=== PATIENT | male | born 1990 | race Caucasian/White ===

== ENCOUNTER 2025-05-29 09:27 | Outpatient (REF) | payer MEDICARE, MEDICAID, SELFPAY ==
--- OUTSIDE RECORDS SUMMARY | 2025-05-28 11:15 | XMS_ITS | Encounter Summary ---
Author Organization [facility] Address [address] [place] [address] Care Team Providers Care Film Color Tester Name Role Phone Makayla Early MD Primary Care Provider [phone]- [phone] Reason for Referral * Consultation (Routine) - Authorized Specialty Diagnoses / Procedures Referred By Yoni stephenson Referred To Contact Behavioral Health Diagnoses Anxiety Makayla Early MD [address] [place] [phone] Phone: tel: fax: Referral ID Status Reason Start Date Expiration Date Visits Requested Visits Authorized [id number] Authorized Specialty Services Required 05/28/2025 05/28/2026 1 1 * Consultation (Routine) - Authorized Specialty Diagnoses / Procedures Referred By Yoni stephenson Referred To Contact Sleep Medicine Diagnoses RUDY on CPAP Makayla Early MD [address] [place] [address] Phone: tel: fax: [facility] Referral ID Status Reason Start Date Expiration Date Visits Requested Visits Authorized [id number] Authorized Specialty Services Required 05/28/2025 05/28/2026 1 1 Reason for Visit * Reason Comments CHW - New Patient Assistance Encounter Details Date Type Department Care Team (Late st Contact Info) Description 05/28/2025 11:15 AM EDT Office Visit [facility] [address] [place] [address] [phone] Makayla Early MD [address] [place] [address] [phone] Bilateral deafness (Primary Dx); Obesity (BMI 35.0-39.9 without comorbidity); Anxiety; RUDY on CPAP; Encounter for immunization; Encounter for vaccination; Routine screening for STI (sexually transmitted infection); Learning disability; Dietary counseling; Exercise counseling; Other specified health status Social History Tobacco Use Types Packs/Day Years Used Date Smoking Tobacco: Never Smokeless Tobacco: Never Tobacco Cessation:Counseling Given: Not Answered Alcohol Use Standard Drinks/Week Comments Never 0 (1 standard drink = 0.6 oz pur e alcohol) Depression Answer Date Recorded Patient Health Questionnaire-9 Score 1 05/28/2025 Patient Health Questionnaire-9 Score 1 05/28/2025 Last PHQ-9: Questionnaire Data Not on file 1 Depression Answer Date Recorded Patient Health Questionnaire-2 Score 0 05/28/2025 Sex and Gender Information Value Date Recorded Sex Assigned at Male 05/09/2025 9:13 AM EDT Legal Sex Male 9:00 AM EDT Gender Identity Male 05/09/2025 9:13 AM EDT Sexual Orientation Straight 05/09/2025 9: 13 AM EDT documented as of this encounter Last Filed Vital Signs Vital Sign Reading Time Taken Comments Blood Pressure 120/84 05/28/2025 11:00 AM EDT Pulse 80 05/28/2025 11:00 AM EDT Temperature 37.1 C (98.7 F) 05/28/2025 11:00 AM EDT Respiratory Rate 20 05/28/2025 11:00 AM EDT Oxygen Saturation 96% 05/28/2025 11:00 AM EDT Inhaled Oxygen Concentration - - Weight 109 kg (239 lb 3.2 oz) 05/28/2025 11:00 A M EDT Height 175.3 cm (5' 9 ) 05/28/2025 11:00 AM EDT Body Mass Index 35.32 05/28/2025 11:00 AM EDT documented in this encounter Functional Status * Over the past 2 weeks, how often have you been bothered by any of the following problems? Question Answer Date of Assessment Author Little interest or pleasure in doing things Not at all 05/28/2025 4:35 PM EDT Bora Early MD Feeling down, depressed, or hopeless Not at all 05/28/2025 4:35 PM EDBora Blanco MD Patient Health Questionnaire-2 Score 0 05/28/2025 4:35 PM EDT Gertrude Early MD * Trouble falling or staying asleep, or sleeping too much Answer Date of Assessment Author Not at all 05/28/2025 4:35 PM EDT Makayla Early MD * Feeling tired or having little energy Answer Date of Assessment Author Several days 05/28/2025 4:35 PM EDT Makayla Early MD * Poor appetite or overeating Answer Date of Assessment Author Not at all 05/28/2025 4:35 PM EDT Makayla Early MD * Feeling bad about yourself - or that you are a failure or have let yourself or your family down Answer Date of Assessment Author Not at all 05/28/2025 4:35 PM EDT Makayla Early MD * Trouble concentrating on things, such as reading the newspaper or watching television Answer Date of Assessment Author Not at all 05/28/2025 4:35 PM EDT Makayla Early MD * Moving or speaking so slowly that other people could have noticed? Or the opposite - being so fidgety or restless that you have been moving around a lot more than usual. Answer Date of Assessment Author Not at all 05/28/2025 4:35 PM EDT Makayla Early MD * Thoughts that you would be better off or hurting yourself in some way Answer Date of Assessment Author Not at all 05/28/2025 4:35 PM EDT Makayla Early MD * Patient Health Questionnaire-9 Score Answer Date of Assessment Author 1 05/28/2025 4:35 PM EDT Makayla Early MD * How difficult have these problems made it for you to do your work, take care of things at home, or get along with other people? Answer Date of Assessment Author Somewhat difficult 05/28/2025 4:35 PM EDT Makayla Perez MD documented as of this encounter Patient Instructions * Patient Instructions* Makayla Early MD - 05/28/2025 11:15 AM EDT -[employer] for video phone and door wells and bed alarm [address] [phone] -we will place a referral for [employer] documented in this encounter Progress Notes * Makayla Early MD - 05/28/2025 11:15 AM EDT Subjective Kit is a 34 y.o. male who presents to the office today for a routine physical and to transfer to [facility]. Kit is accompanied by his father Kit Jorge Sr. [place] Sign Language used during the visit. Interim history: Last PCP visit: established care 05/28/25 Current concerns: 1) has seasonal allergies causing nasal congestion 2) would like a DIVER ASSISTANT to assist with visits and home keeping 3) has occasional left ankle pain 4) gets intermittent abscess behind left thigh, not currently active 5) reports he has a hard time getting up in the morning due to fatigue and wakes many times in the night. He has a history of RUDY and report he stopped using his machine after his mother becausehe did not know how to order supplies. Social History: Lives [facility] [place]. His mom passed in 2022 and his father and sister, Josephine, have been caring for him. He reports he went to [employer] and dropped out. His father reports a history of learning disability, diagnosis unknown. (Records requested from 05/28/25). He is largely isolated and reports depression. He has light fire alarms. He does not have video relay, a a light doorbell or a vibrating bed alarm. Tobacco: denied Drugs: none Alcohol: No Sexuality: Denies current sexual activity Suicide/Depression: The patient denies any present symptoms of depression or anxiety. Review of Systems Current Medications[1] Allergies[2] Medical History[3] Surgical History[4] Family History[5] Objective Visit Vitals BP 120/84 (BP Location: Left arm, Patient Position: Sitting, BP Cuff Size: Adult) Pulse 80 Temp 98.7 ??F (37.1 ??C) (Oral) Resp 20 Ht 5' 9 (1.753 m) Wt 239 lb 3.2 oz (109 kg) SpO2 96% BMI 35.32 kg/m?? Smoking Status Never BSA 2.3 m?? Physical Exam Constitutional: Appearance: Normal appearance. HENT: Ears: Comments: Sensioneural haring loss Cardiovascular: Rate and Rhythm: Normal rate and regular rhythm. Heart sounds: Normal heart sounds. Pulmonary: Effort: Pulmonary effort is normal. Breath sounds: Normal breath sounds. Abdominal: General: Abdomen is flat. Palpations: Abdomen is soft. Tenderness: There is no abdominal tenderness. Musculoskeletal: Cervical back: Normal range of motion and neck supple. Comments: Clubbed, deformity of fingers and nails. Lymphadenopathy: Cervical: No cervical adenopathy. Skin: General: Skin is warm and dry. Neurological: Mental Status: Mental status is at baseline. Psychiatric: Behavior: Behavior normal. 34 y.o. male physical exam. Assessment & Plan Bilateral deafness -Patient needs brewing director for all visits. Please make note of this in any referrals. -number given for [employer] for assistive equipment for Deaf such as viedo relay, door bel and bed alarm -referral to [employer] for assistance with DIVER ASSISTANT, possible referral to social group such as are Obesity (BMI 35.0-39.9 without comorbidity) Orders: Hepatic Function Panel; Future Lipid Panel, Standard; Future Basic Metabolic Panel; Future TSH W/Reflex to FT4; Future Anxiety -referral to behavior health 05/28/25 Orders: TSH W/Reflex to FT4; Future Referral to Behavioral Health; Future RUDY on CPAP He has not used his CPAP since 2022 due to his mother's and not knowing how to order supplies. He would like to be treated and is symptomatic. -Referral to sleep medicine placed 05/28/25 Orders: TSH W/Reflex to FT4; Future Referral to Sleep Medicine; Future Encounter for immunization Orders: FLU VACCINE TRIVALENT [id number] (Fluarix) 19 yrs + PCV-20 VACCINE 6 wks + Encounter for vaccination Orders: COVID-19 VACCINE [id number] (Comirnaty) 12 yrs + Routine screening for STI (sexually transmitted infection) Orders: Hepatitis C Antibody with Reflex to HCV, RNA, Quantitative, Real-Time PCR; Future HIV-1/2 Antigen and Antibodies, Fourth Generation, with Reflexes; Future Learning disability Records requested from [facility] 05/28/25 Dietary counseling Dietary Recommendations: Fruits, vegetables, whole grains, protein foods, and fat-free or low-fat dairy products are healthychoices. Eat different types of protein foods in your diet. This can include seafood, lean meats, poultry, beans, peas, lentils, nuts, seeds, soy products, and eggs. Limit foods and beverages higher in added sugars, saturated fat, and sodium. Exercise Recommendations: At least 150 minutes of moderate-intensity physical activity per week, or an equivalent combinationof moderate- and vigorous-intensity activity Exercise counseling Other specified health status -next comprehensive annual evaluation due after 05/28/26 -eye care facilitated by -dental home is -alec care proxy filed 05/28/26 Physical exam -Normal growth and development. -Anticipatory guidance discussed. -Preventative care / harm reduction discussed. Follow up in about 2 months (around 07/28/2025) for f/u labs and viability. [1] No current outpatient medications on file. [2] Allergies Allergen Reactions Budesonide-Formoterol Fumarate Swelling of throat and tounge Cephalexin Rash, hives, nausea/vomiting Clarithromycin Rash, hives, nausea/vomiting Honey Bee Venom Penicillins Rash, hives, nausea/vomiting Sulfa Antibiotics Rash, hives, nausea/vomiting Verapamil Unknown [3] History reviewed. No pertinent past medical history. [4] History reviewed. No pertinent surgical history. [5] No family history on file. documented in this encounter Miscellaneous Notes * Assessment & Plan Note - Makayla Early MD - 05/28/2025 11:15 AM EDT Associated Problem(s): Bilateral deafness -Patient needs brewing director for all visits. Please make note of this in any referrals. -number given for [employer] for assistive equipment for Deaf such as viedo relay, door bel and bed alarm -referral to [employer] for assistance with DIVER ASSISTANT, possible referral to social group such as [facility] * Assessment & Plan Note - Makayla Early MD - 05/28/2025 11:15 AM EDT Associated Problem(s): Obesity (BMI 35.0-39.9 without comorbidity) Orders: Hepatic Function Panel; Future Lipid Panel, Standard; Future Basic Metabolic Panel; Future TSH W/Reflex to FT4; Future * Assessment & Plan Note - Makayla Early MD - 05/28/2025 11:15 AM EDT Associated Problem(s): RUDY on CPAP He has not used his CPAP since 2022 due to his mother's and not knowing how to order supplies. He would like to be treated and is symptomatic. -Referral to sleep medicine placed 05/28/25 Orders: TSH W/Reflex to FT4; Future Referral to Sleep Medicine; Future * Assessment & Plan Note - Makayla Early MD - 05/28/2025 11:15 AM EDT Associated Problem(s): Anxiety -referral to behavior health 05/28/25 Orders: TSH W/Reflex to FT4; Future Referral to Behavioral Health; Future * Assessment & Plan Note - Makayla Early MD - 05/28/2025 11:15 AM EDT Associated Problem(s): Other specified health status -next comprehensive annual evaluation due after 05/28/26 -eye care facilitated by -dental home is -alec care proxy filed 05/28/26 documented in this encounter Plan of Treatment Upcoming Encounters Date Type Department Care Team (Late st Contact Info) Description 07/30/2025 11:00 AM EST Office Visit [facility] [address] [place] [address] Makayla Early MD [address] [place] [address] Scheduled Orders Name Type Priority Associated Diagnoses Orde r Schedule Hepatitis C Antibody with Reflex to HCV, RNA, Quantitative, Real-Time PCR Lab Routine Routine screening for STI (sexually transmitted infection) Expected: 05/28/2025 (Approximate), Expires: 05/28/2026 HIV-1/2 Antigen and Antibodies, Fourth Generation, with Reflexes Lab Routine Routine screening for STI (sexually transmitted infection) Expected: 05/28/2025 (Approximate), Expires: 05/28/2026 Hepatic Function Panel Lab Routine Obesity (BMI 35.0-39.9 without comorbidity) Expected: 05/28/2025 (Approximate), Expires: 05/28/2026 Lipid Panel, Standard Lab Routine Obesity (BMI 35.0-39.9 without comorbidity) Expected: 05/28/2025 (Approximate), Expires: 05/28/2026 Basic Metabolic Panel Lab Routine Obesity (BMI 35.0-39.9 without comorbidity) Expected: 05/28/2025 (Approximate), Expires: 05/28/2026 TSH W/Reflex to FT4 Lab Routine Obesity (BMI 35.0-39.9 without comorbidity) RUDY on CPAP Anxiety Expected: 05/28/2025 (Approximate), Expires: 05/28/2026 Scheduled Referrals Name Type Priority Associated Diagnoses Order Schedule Referral to Sleep Medicine Outpatient Referral Routine RUDY on CPAP Expected: 05/28/2025 (Approximate), Expires: 05/28/2026 Referral to Behavioral Health Outpatient Referral Routine Anxiety Expected: 05/28/2025 (Approximate), Expires: 11/25/2026 documented as of this encounter Visit Diagnoses Diagnosis Bilateral deafness- Primary Unspecified hearing loss Obesity (BMI 35.0-39.9 without comorbidity) Anxiety Anxiety state, unspecified RUDY on CPAP Encounter for immunization Encounter for vaccination Routine screening for STI (sexually transmitted infection) Screening examination for venereal disease Learning disability Other specific developmental learning difficulties Dietary counseling Dietary surveillance and counseling Exercise counseling Other specified health status documented in this encounter Additional Health Concerns Assessment Noted Time PHQ-9 Depression Total Score: 1 05/28/20 25 4:35 PM EDT documented as of this encounter Care Teams Film Color Tester Relationship Specialty Start Date End Date Makayla Early MD [address] [place] [address] PCP - General Family Medicine 05/28/25 documented as of this encounter
--- OUTSIDE RECORDS SUMMARY | 2025-05-29 10:46 | XMS_ITS | Encounter Summary ---
Author Organization [facility] Address [address] [place] [phone] Phone Care Team Providers Care Stoner Out Name Role Phone Herberth Conway PA-C Primary Care Provider [phone] [phone] Irasema Herrera Primary Care Provider Dayanara Agee Primary Care Provider [phone]- [phone] Reason for Referral * MRI/CAT Scan - Closed Specialty Diagnoses / Procedures Referred By Yoni stephenson Referred To Contact Radiology Diagnoses Acute pain of right knee Procedures MRI Knee (Right) Trevor Lopez MD Phone: tel: fax: mailto:[email or web address] Referral ID Status Reason Start Date Expiration Date Visits Re quested Visits Authorized [id number] Closed 09/28/2018 09/28/2019 1 1 Encounter Details Date Type Department Care Team (Late st Contact Info) Description 09/28/2018 Ancillary Orders Virtual Department [address] [place] [address] Trevor Lopez MD [address] [place] [phone] [email or web address] Acute pain of right knee Social History Tobacco Use Types Packs/Day Years Used Date Smoking Tobacco: Never Smokeless Tobacco: Never Alcohol Use Standard Drinks/Week Comments No 0 (1 standard drink = 0.6 oz pur e alcohol) Sex and Gender Information Value Date Recorded Sex Assigned at Not on file Legal Sex Male 9:00 PM EDT Gender Identity Not on file Sexual Orientation Not on file documented as of this encounter Plan of Treatment Not on file documented as of this encounter Results * MRI KNEE WITHOUT CONTRAST (RIGHT) (10/13/2018 11:08 AM EST) Anatomical Region Laterality Modality Knee Right Magnetic Resonan ce 10/13/2018 11:3 8 AM EST Impressions 10/13/2018 11:42 AM EST Lateral patellar deviation with apparent disruption of the medial retinaculum which could be correlated with clinical and radiographic findings. Small to moderate-sized joint effusion with prepatellar soft tissue edema. No discrete meniscal or ligamentous tears are identified. POS - [id number] Narrative 10/13/2018 11:42 AM EST TECHNIQUE: Exam performed on a 1.5 Aishwarya high-field MRI scanner. Axial proton density with fat suppression, coronal proton density with fat suppression, sagittal T1, oblique sagittal proton density and proton density with fat suppression parallel to the plane of the ACL sequences were obtained. FINDINGS: No comparison radiographs are available. No discrete meniscal tear is demonstrated. Cruciate and collateral ligaments appear to be intact. Popliteus, infrapatellar, and visualized portions of the distal quadriceps tendons are intact. There is lateral deviation of the patella with what seems to represent disruption of the medial retinaculum near the patellar insertion point, with surrounding soft tissue edema and minimal subcortical patellar marrow edema present. There is prepatellar soft tissue edema. There is a small to moderate-sized joint effusion most pronounced in the lateral suprapatellar bursa. No soft tissue mass or cyst demonstrated. There is a small focus of subcortical marrow edema in the peripheral aspect of the medial femoral condyle which could represent tiny bone contusion. No other significant marrow changes or focal osteochondral defect are demonstrated. Procedure Note Ricky Leyva MD - 10/13/2018 TECHNIQUE: Exam performed on a 1.5 Aishwarya high-field MRI scanner. Axialproton density with fat suppression, coronal proton density with fatsuppression, sagittal T1, oblique sagittal proton density and protondensity with fat suppression parallel to the plane of the ACL sequenceswere obtained. FINDINGS: No comparison radiographs are available. No discrete meniscal tear isdemonstrated. Cruciate and collateral ligaments appear to be intact.Popliteus, infrapatellar, and visualized portions of the distal quadricepstendons are intact. There is lateral deviation of the patella with what seems to representdisruption of the medial retinaculum near the patellar insertion point,with surrounding soft tissue edema and minimal subcortical patellar marrowedema present. There is prepatellar soft tissue edema. There is a smallto moderate-sized joint effusion most pronounced in the lateralsuprapatellar bursa. No soft tissue mass or cyst demonstrated. There koby small focus of subcortical marrow edema in the peripheral aspect of themedial femoral condyle which could represent tiny bone contusion. Noother significant marrow changes or focal osteochondral defect aredemonstrated. IMPRESSION: Lateral patellar deviation with apparent disruption of the medialretinaculum which could be correlated with clinical and radiographicfindings. Small to moderate- sized joint effusion with prepatellar softtissue edema. No discrete meniscal or ligamentous tears are identified. POS - [id number] us Trevor Lopez MD IMG MR EXTREMITY Final Resul t documented in this encounter Visit Diagnoses Diagnosis Acute pain of right knee Acute pain of right knee documented in this encounter Care Teams Stoner Out Relationship Specialty Start Date End Date Herberth Conway PA-C [address] [place] [address] [address] [place] [address] PCP - General 07/20/17 10/12/18 Irasema Herrera PA [address] [place] [address] [address] [place] [address] PCP - General Unknown Provider Specialty 10/13/18 Dayanara Agee PA [address] [place] [id number] PCP - General Unknown Provider Specialty 08/01/21 documented as of this encounter Additional Source Comments The information contained in this document represents components of the legal health record. It is not the complete legal health record.[facility]
--- OUTSIDE RECORDS SUMMARY | 2025-05-29 10:46 | XMS_ITS | Encounter Summary ---
Author Organization [facility] Address [address] [place] [address] Phone Care Team Providers Care Tower Loader Operator Name Role Phone Dayanara Agee Primary Care Provider [phone]- [phone] Encounter Details Date Type Department Care Team (Latest Contact Info) Description 08/01/2021 Transcribe Orders [facility] [address] [address] Sol Coronado NP [address] [place] [address] Rectal bleeding (Primary Dx); Abdominal pain, left lower quadrant Social History Tobacco Use Types Packs/Day Years [...] documented as of this encounter Results * (ABNORMAL) C-Reactive Protein (08/01/2021 2:05 PM EST) C REACTIVE PROTEIN 4.6(H) 0.0 - 4.0 mg/L [facility] Blood 08/01/2021 2:05 PM EST 08/01/2021 2:08 PM EST Sol Coronado NP LAB BLOOD ORDERABLES Elidia l Result [address] [address] * (ABNORMAL) Comprehensive metabolic panel (08/01/2021 2:05 PM EST) SODIUM 136 133 - 146 mmol/L [facility] POTASSIUM 3.9 3.3 - 5.1 mmol/L [facility] CHLORIDE 101 96 - 108 mmol/L [facility] CO2 26 21 - 35 mmol/L [facility] BUN 12 6 - 19 mg/dL [facility] CREATININE 0.90 0.5 - 1.5 mg/dL [facility] GLUCOSE 99 70 - 99 mg/dL [facility] ALBUMIN 4.6 3.9 - 4.8 g/dL [facility] TOTAL PROTEIN 7.0 6.5 - 8.0 g/dL [facility] CALCIUM 9.5 8.4 - 10.3 mg/dL [facility] ALKALINE PHOSPHATASE 97 39 - 117 U/L [facility] TOTAL BILIRUBIN 1.4(H) 0.0 - 1.2 mg/dL [facility] AST 34 0 - 37 U/L [facility] ALT 61(H) 0 - 40 U/L [facility] GLOBULIN 2.4 1 - 4.8 g/dL [facility] EGFR 118 >59 mL/min/1.7 3m2 [facility] Comment:Estimated glomerular filtration rate calculated using the CKD-EPI refit equation. ANION GAP 13 10 - 20 mmol/L [facility] Blood 08/01/2021 2:05 PM EST 08/01/2021 2:08 PM EST us Sol Coronado NP LAB BLOOD ORDERABLES Elidia l Result [address] [address] * CBC (08/01/2021 2:05 PM EST) WBC 8.35 4.00 - 11.00 K/uL [facility] RBC 5.22 4.23 - 5.82 M/uL [facility] HGB 15.3 13.4 - 17.5 g/dL [facility] HCT 44.8 37.0 - 51.0 % [facility] PLT 273 140 - 430 K/uL [facility] MCV 85.8 78.0 - 97.0 fL [facility] MCH 29.3 25.0 - 33.0 pg [facility] MCHC 34.2 32.0 - 36.0 g/dL [facility] RDW 13.0 11.0 - 15.0 % [facility] MPV 12.1 8.4 - 12.8 [facility] NRBC 0.00 0 /100 WBCs [facility] ABSOLUTE NRBC 0.00 0 K/uL [facility] Blood 08/01/2021 2:05 PM EST 08/01/2021 2:08 PM EST Sol Coronado FEEDER OPERATOR LAB BLOOD ORDERABLES Elidia ayala Result Performing Organization Address City/State/[facility] Co de Phone Number [address] [address] documented in this encounter Visit Diagnoses Diagnosis Rectal bleeding- Primary Hemorrhage of rectum and anus Abdominal pain, left lower quadrant documented in this encounter Care Teams Tower Loader Operator Relationship Specialty Start Date End Date Dayanara Agee PA [address] [place] [id number] PCP - General Unknown Provider Specialty 08/01/21 documented as of this encounter Additional Source Comments The information contained in this document represents components of the legal health record. It is not the complete legal health record.[facility]
--- OUTSIDE RECORDS SUMMARY | 2025-05-29 10:46 | XMS_ITS | Encounter Summary ---
Author Organization [facility] Address [address] [place] [address] Phone Care Team Providers Care Eligibility Analyst Name Role Phone Dayanara Agee Primary Care Provider [phone]- [phone] Encounter Details Date Type Department Care Team (Late st Contact Info) Description 01/13/2023 Transcribe Orders Virtual Department [address] [place] [address] Fabby Lantigua MD [address] [place] [address] [email or web address] Left lower quadrant pain (Primary Dx) Social History Tobacco Use Types Packs/Day Years Used Date Smoking Tobacco: Never Smokeless Tobacco: Never Alcohol Use Standard Drinks/Week Comments No 0 (1 standard drink = 0.6 oz pur e alcohol) Education Answer Date Recorded Are you interested in more education? Not on dee e 12/18/2022 Are you concerned about learning? Not on file 12/18/2022 No 12/18/2022 No 12/18/2022 Digital Access Answer Date Recorded No 01/13/2023 No 01/13/2023 Reliable internet access at home? Not on file 01/13/2023 Device with a working camera? Not on file Sex and Gender Information Value Date Recorded Sex Assigned at Not on file Legal Sex Male 9:00 PM EDT Gender Identity Not on file Sexual Orientation Not on file documented as of this encounter Plan of Treatment Not on file documented as of this encounter Visit Diagnoses Diagnosis Left lower quadrant pain- Primary Abdominal pain, left lower quadrant documented in this encounter Care Teams Eligibility Analyst Relationship Specialty Start Date End Date Dayanara Agee PA [address] [place] [phone] PCP - General Unknown Provider Specialty 08/01/21 documented as of this encounter Additional Source Comments The information contained in this document represents components of the legal health record. It is not the complete legal health record.[facility]
--- OUTSIDE RECORDS SUMMARY | 2025-05-29 10:46 | XMS_ITS | Clinical Summary ---
Author Organization [facility] Address [address] [place] [address] Phone Care Team Providers Care Criminal Investigative Agent Name Role Phone Dayanara Agee Primary Care Provider Allergies Active Allergy Reactions Criticality Noted Date Comments Allergen Flc-Yuzox-Rmieo Bee 022 Clarithromycin 10/04/2017 Rash, hives, nausea/vomiting Cephalexin 10/04/2017 Rash, hives, nausea/vomiting Penicillins 10/04/2017 Rash, hives, nausea/vomiting Sulfa (Sulfonamide Antibiotics) 10/04/2017 Rash, hives, nausea/vomiting Budesonide-Formoterol 10/04/2017 Swelling of throat and tounge Verapamil Unknown 10/04/2017 Medications fluticasone-олег meterol (ADVAIR DISKUS) 500-50 mcg/dose DISKUS 1 puff Acti ve EPINEPHrine (EPIPEN JR) 0.15 mg/0.3 mL injection Active loratadine (CLARITIN) 10 mg tablet 1 tablet Active RIZATRIPTAN BENZOATE (MAXALT ORAL) 1 tablet as needed one time Active albuterol (PROAIR HFA) 90 mcg/actuation inhaler 2 puffs as needed Active montelukast (SINGULAIR) 10 mg tablet 1 tablet in the evening Active azelastine (ASTELIN) 137 mcg (0.1 %) nasal spray SPRAY 1 SPRAY INTO EACH NOSTRIL TWICE A DAY 30 mL 11 12/19/2018 Active omeprazole (PRILOSEC) 40 MG capsule Take by mouth daily. 10/18/2021 Active fluticasone furoate-vilante roL (BREO ELLIPTA) 200-25 mcg/dose inhaler Inhale 1 puff into the lungs daily. Active fluticasone propionate (FLONASE) 50 mcg/actuation nasal sprayIndication s:Chronic rhinitis SPRAY 2 SPRAYS INTO EACH NOSTRIL EVERY DAY 48 mL 3 12/08/2021 Active Active Problems Problem Noted Date Diagnosed Date Moderate persistent asthma 10/04/2017 Assessment & Plan (10/04/2017 11:07 AM EST): Clinically well controlled. Continue high-dose Advair ensuring he holds his breath for 10 seconds after inhalation. RUDY on CPAP 10/04/2017 Assessment & Plan (10/04/2017 11:30 AM EST): Poor CPAP tolerance. Continue follow-up with sleep medicine services. Laryngoscopy suggestive of element of vocal cord dysfunction. Chronic rhinitis 10/04/2017 Overview (10/04/2017): Positive to dust mites on allergy testing. Assessment & Plan (10/04/2017 11:30 AM EST): Continue nasal steroids. Increase Flonase to 2 sprays each side once daily in the evening. Trial of adding Astelin nasal spray, 1 spray each side twice daily. Vocal cord dysfunction 10/04/2017 Overview (10/04/2017): On laryngoscopy 10/04/17 Assessment & Plan (10/04/2017 11:31 AM EST): Increase laryngeal tension seen on laryngoscopy today. Patient unable to phonate making further evaluation difficult. Increase omeprazole to 40 mg daily on an empty stomach. Increase treatment for allergic rhinitis to allow better nasal breathing. If still ineffective, could consider breathing training with speech therapy although the patient is mute and deaf making teaching somewhat more challenging. Encounters Date Type Department Care Team Description 04/18/2025 Transcribe Orders [facility] [address], [address] [place] [address] Cathy Duarte PA RUDY (obstructive sleep apnea) (Primary Dx) 04/13/2025 Transcribe Orders [address], [address] [place] [address] Cathy Duarte PA from Last 3 Months Immunizations Immunization Administration Dates Next Due DTP 02/18/1993, 2,1991,09/13 DTaP 09/26/1996 Hepatitis B 09/06/1996,11/15/1995,10/18/1995 Hib,HbOC 10/14/1992, 2,1991,09/13 INFLUENZA, SPLIT VIRUS, TRIVALENT PF 07/14/2011 INFLUENZA, SPLIT VIRUS, TRIV ALENT W/ PRESERVATIVE IM 05/26/2012,06/03/2010,06/26/2007,07/20 Influenza Quadrivalent Prese rvative Free IM 08/15/2019,06/01/2018,07/06/2017,06/04,05/09/2015,07/11/2014 Influenza Split (Incl. Purif ied Surface Antigen) 07/31/2009,06/28/2008 Influenza trivalent preserva tive free intradermal 06/14/2013 MMR 09/26/1996,07/09/1992 Novel [id number], Injectable 07/31/2009 Pneumococcal polysaccharide PPSV23 11/29/2012 Polio - OPV 09/26/1996, 3,1991,09/13 Td (adult),2 Lf Tetanus Toxo id, PF, Adsorbed 02/16/2003 Tdap 12/01/2018,11/05/2008 Social History Tobacco Use Types Packs/Day Years [...] on file Sexual Orientation Not on file Last Filed Vital Signs Vital Sign Reading Time Taken Comments Blood Pressure 111/68 11/13/2021 10:26 AM EDT Pulse 80 11/13/2021 10:26 AM EDT Temperature 36.1 C (97 F) 11/13/2021 10:12 AM EDT Respiratory Rate 16 11/13/2021 10:26 AM EDT Oxygen Saturation 98% 11/13/2021 10:26 AM EDT Inhaled Oxygen Concentration - - Weight 128.8 kg (284 lb) 01/08/2022 5:17 PM EDT Height 175.3 cm (5' 9 ) 01/08/2022 5:17 PM EDT Body Mass Index 41.94 01/08/2022 5:17 PM EDT Plan of Treatment Health Maintenance Due Date Last Done Comments DEPRESSION SCREENING 2003 HIV ONE-TIME SCREENING (18-65 YEARS) 2009 PNEUMOCOCCAL VACCINES (0-49 years) (2 of 2 - PCV) 11/29/2013 11/29/2012 INFLUENZA VACCINE (#1) 2025 , 06/13/2020, 08/15/2019, Additional history exists COVID-19 VACCINE (3 - 2024- season) 2025 03/05/2021, 02/12/2021 Adult Td,Tdap Booster 12/01/2028 12/01/2018 , 11/05/2008, 02/16/2003 HIB VACCINES Completed 10/14/1992, 01/21, 1991, Additional history exists SMOKING STATUS SCREENING (Once After 26 Yrs) Completed 11/13/2021 HEPATITIS C SCREENING Completed 11/25/2021, 022 HEPATITIS A VACCINES Aged Out No long er eligible based on patient's age to complete this topic MENINGOCOCCAL VACCINES (ACWY) Aged Out No longer eligible based on patient's age to complete this topic MENINGOCOCCAL VACCINES (B) Aged Out N o longer eligible based on patient's age to complete this topic Medical Devices Not on file Procedures Procedure Name Priority Date/Time Associated Diagnosis Comments LIVER FIBROSIS TEST Routine 11/25/2021 1 2:23 PM EDT Abdominal pain, generalized Nonspecific abnormal results of liver function study from Last 3 Months or Most Recently Relevant to Health Maintenance Results * (ABNORMAL) Liver fibrosis test (11/25/2021 12:23 PM EDT) Fibrosis score 0.14 [facility] Interpretation (Fibrosis) SEE NOTE [facility] Comment: (NOTE) no fibrosis Fibro Test Score (f) Metavir Score f>=0 and f<=0.21 : F0 (no fibrosis) f>0.21 and f<=0.27 : F0-F1 (no fibrosis) f>0.27 and f<=0.31 : F1 (minimal fibrosis) f>0.31 and f<=0.48 : F1-F2 (minimal fibrosis) f>0.48 and f<=0.58 : F2 (moderate fibrosis) f>0.58 and f<=0.72 : F3 (advanced fibrosis) f>0.72 and f<=0.74 : F3-F4 (advanced fibrosis) f>0.74 and f<=1.00 : F4 (severe fibrosis) HCV Fibrosis Grade F0 Q [facility] NECROINFLAMM SCORE 0.28 Q [facility] NECROINFLAMM GRADE SEE NOTE Q [facility] Comment: (NOTE) Result: A0-A1 NECROINFLAMM INTERP SEE NOTE [facility] Comment: (NOTE) no activity ActiTest Score (a) Metavir Score a>=0 and a<=0.17 : A0 (no activity) a>0.17 and a<=0.29 : A0-A1 (no activity) a>0.29 and a<=0.36 : A1 (minimal activity) a>0.36 and a<=0.52 : A1-A2 (minimal activity) a>0.52 and a<=0.60 : A2 (significant activity) a>0.60 and a<=0.62 : A2-A3 (significant activity) a>0.62 and a<=1.00 : A3 (severe activity) A2 Macroglobulin 120 106 - 279 mg/dL [facility] Haptoglobin 131 43 - 212 mg/dL [facility] Apolipoprotein A1 151 94 - 176 mg/dL [facility] TOTAL BILIRUBIN 1.4(H) 0.2 - 1.2 mg/dL [facility] GGT 59 3 - 90 U/L [facility] ALT 56(H) 9 - 46 U/L [facility] Specimen/Product ID [id number] [facility] Comments (Chemistry) SEE NOTE [facility]/ [facility] Comment: (NOTE) The reliability of results is dependent on compliance with the preanalytical and analytical conditions recommended by [employer]. The tests have to be deferred for: acute hemolysis, acute hepatitis, acute inflammation, extra hepatic cholestasis. The advice of a specialist should be sought for interpretation in chronic hemolysis and Gilbert's syndrome. The test interpretation is not validated in liver transplant patients. Isolated extreme values of one of the components should lead to caution in interpreting the results. In case of discordance between a biopsy result and a test, it is recommended to seek the advice of a specialist. The causes of these discordances could be due to a flaw of the test or to a flaw in the biopsy: i.e. a liver biopsy has a 33% variability rate for one fibrosis stage. FibroTest is interpretable for chronic hepatitis B and C, alcoholic and non alcoholic steatosis. ActiTest is interpretable for chronic hepatitis B and C. The performance characteristics have been determined by [facility]. It has not been cleared or approved by the U.S. Food and Drug Administration. Performance characteristics refer to the analytical performance of the test. [employer], the associated logo, [employer] and all associated [employer] graff are the registered trademarks of [employer]. All third alliance party graff - (R) and (TM) - are the property of their respective owners. (C) [id number] [employer]. All rights reserved. Blood 11/25/2021 12:2 3 PM EDT 11/25/2021 12:26 PM EDT us Sol [place] NP LAB BLOOD ORDERABLES Elidia ayala Result [facility] [address] [place] [address], [facility] from Last 3 Months or Most Recently Relevant to Health Maintenance Insurance [place] [address] [place], [place] [address]HEALTH MEDICARE PART A & B [place] B Member Subscriber Plan / Payer (Ef fective 2011-Present) Name:Kit Jorge Member ID:[id number] Relation to Subscriber:Self Name:Kit Jorge Subscriber ID:[id number] Payer ID:[id number] Group ID:Not on file Type:Medicare Address: [facility] [employer] [facility] [address] [place] [address] [place] B Member Subscriber Plan / Payer (Ef fective 2011-Present) Name:Kit Jorge Member ID:[id number] Relation to Subscriber:Self Name:Kit Jorge Subscriber ID:[id number] Payer ID:[id number] Group ID:Not on file Type:Medicare Address: [facility] [employer] [facility] [address] [place] [address] [place] PART A & B [facility] MED[facility] PART A & B Care Teams Criminal Investigative Agent Relationship Specialty Start Date End Date Dayanara Agee PA [address] [place] [address] PCP - General Unknown Provider Specialty 08/01/21 Additional Source Comments The information contained in this document represents components of the legal health record. It is not the complete legal health record.[facility]
--- OUTSIDE RECORDS SUMMARY | 2025-05-29 10:46 | XMS_ITS | Encounter Summary ---
Author Organization [facility] Address [address] [place] [phone] Phone Care Team Providers Care Psychologist Name Role Phone Dayanara Agee Primary Care Provider [phone]- [phone] Encounter Details Date Type Department Care Team (Latest Contact Info) Description 11/25/2021 Transcribe Orders Virtual Department [address] [place] [address] Sol [place] NP [address] [place] [address] Abdominal pain, unspecified abdominal location (Primary Dx) Social History Tobacco Use Types [...] as of this encounter Visit Diagnoses Diagnosis Abdominal pain, unspecified abdominal location- Primary documented in this encounter Care Teams Psychologist Relationship Specialty Start Date End Date Dayanara Agee PA [address] [place] [phone] PCP - General Unknown Provider Specialty 08/01/21 documented as of this encounter Additional Source Comments The information contained in this document represents components of the legal health record. It is not the complete legal health record.[facility]
--- OUTSIDE RECORDS SUMMARY | 2025-05-29 10:46 | XMS_ITS | Encounter Summary ---
Author Organization [facility] Address [address] [place] [address] Phone Care Team Providers Care Geospatial Image Analyst Name Role Phone Dayanara Agee Primary Care Provider [phone]- [phone] Reason for Referral * MRI/CAT Scan - Closed Specialty Diagnoses / Procedures Referred By Yoni stephenson Referred To Contact Radiology Diagnoses Mild cognitive impairment, so stated Procedures MRI Brain Eddie Robertson MD, PhD Phone: tel: fax: [email or web address] Referral ID Status Reason Start Date Expiration Date Visits Re quested Visits Authorized [id number] Closed 12/03/2021 12/03/2022 1 1 Encounter Details Date Type Department Care Team (Latest Contact Info) Description 12/03/2021 Transcribe Orders Virtual Department [address] [place] [phone] Eddie Robertson MD, PhD [address] [place] [phone] [email or web address]. [employer] Mild cognitive impairment, so stated (Primary Dx) Social History Tobacco Use Types [...] as of this encounter Results * MRI BRAIN WITHOUT CONTRAST (01/13/2022 11:25 AM EDT) Anatomical Region Laterality Modality Head Magnetic Resonan ce 01/13/2022 12:2 0 PM EDT Impressions 01/13/2022 12:24 PM EDT No acute intracranial abnormality. Narrative 01/13/2022 12:24 PM EDT MRI BRAIN WITHOUT CONTRAST TECHNIQUE: Multi-sequence, multi-planar MRI of the brain was performed without intravenous contrast. COMPARISON: None FINDINGS: Brain Parenchyma: Normal. No evidence of acute infarct, mass lesion, or hemorrhage. Corpus callosum and midline structures are unremarkable. No evidence of Chiari malformation Ventricular System and Extra-Axial Spaces: Normal. No evidence of midline shift or hydrocephalus. Extracranial Structures: Arterial flow voids in the skull base are present. The paranasal sinuses and mastoid air cells are clear. The orbits are unremarkable. Procedure Note Heriberto Dooley MD - 01/13/2022 MRI BRAIN WITHOUT CONTRAST TECHNIQUE: Multi-sequence, multi-planar MRI of the brain was performed withoutintravenous contrast. COMPARISON: None FINDINGS: Brain Parenchyma: Normal. No evidence of acute infarct, mass lesion, orhemorrhage. Corpus callosum and midline structures are unremarkable. Noevidence of Chiari malformation Ventricular System and Extra-Axial Spaces: Normal. No evidence of midlineshift or hydrocephalus. Extracranial Structures: Arterial flow voids in the skull base arepresent. The paranasal sinuses and mastoid air cells are clear. The orbits areunremarkable. IMPRESSION: No acute intracranial abnormality. Eddie Robertson MD, PhD IMG MR HEAD/NECK Final Result documented in this encounter Visit Diagnoses Diagnosis Mild cognitive impairment, so stated- Primary Mild cognitive impairment, so stated documented in this encounter Care Teams Geospatial Image Analyst Relationship Specialty Start Date End Date Dayanara Agee PA [address] [address] PCP - General Unknown Provider Specialty 08/01/21 documented as of this encounter Additional Source Comments The information contained in this document represents components of the legal health record. It is not the complete legal health record.[facility]
--- OUTSIDE RECORDS SUMMARY | 2025-05-29 10:46 | XMS_ITS | Encounter Summary ---
Author Organization [facility] Address [address] [address] Phone Care Team Providers Care Building Supervisor Name Role Phone Dayanara Agee Primary Care Provider [phone] Encounter Details Date Type Department Care Team (Late st Contact Info) Description 10/16/2021 Procedure Pass [facility] Endoscopy Admitting Dept Virtual Department [address] [place] [phone] Social History Tobacco Use Types Packs/Day Years [...] documented as of this encounter Visit Diagnoses Not on filedocumented in this encounter Care Teams Building Supervisor Relationship Specialty Start Date End Date Dayanara Agee PA [address] [place] [address] PCP - General Unknown Provider Specialty 08/01/21 documented as of this encounter Additional Source Comments The information contained in this document represents components of the legal health record. It is not the complete legal health record.[facility]
--- OUTSIDE RECORDS SUMMARY | 2025-05-29 10:46 | XMS_ITS | Encounter Summary ---
Author Organization [facility] Address [address] [place] [address] Phone Care Team Providers Care Database Marketing Manager Name Role Phone Dayanara Agee Primary Care Provider +1- [phone] Encounter Details Date Type Department Care Team (Latest Contact Info) Description 09/30/2021 Transcribe Orders [address] [place], [place] [address] Sol Coronado, REA [address] [place] [address] Abdominal pain, left lower quadrant (Primary Dx); Need for hepatitis C screening test Social History Tobacco Use Types Packs/Day Years [...] documented as of this encounter Results * Hepatitis C antibody, qualitative (09/30/2021 1:43 PM EST) HCV NON-REACTIV E NON-REACTI VE [facility] Blood 09/30/2021 1:43 PM EST 09/30/2021 1:49 PM EST Sol Coronado NP LAB BLOOD ORDERABLES Elidia l Result [address] [address] * Hepatitis B core antibody, total (09/30/2021 1:43 PM EST) HEP B CORE AB, TOT NON-REACTI VE NON-REACTI VE [facility] Blood 09/30/2021 1:43 PM EST 09/30/2021 1:49 PM EST Sol Coronado ARTISTS' MODEL LAB BLOOD ORDERABLES Elidia l Result [address] [address] * HEPATITIS A ANTIBODY, TOTAL (09/30/2021 1:43 PM EST) HAV TOTAL AB NON-REACTI VE NON-REACTI VE [facility] Blood 09/30/2021 1:43 PM EST 09/30/2021 1:49 PM EST Sol Coronado NP LAB BLOOD ORDERABLES Elidia l Result Performing Organization Address City/[facility]/ZIP Co de Phone Number [address] [address] * (ABNORMAL) Ceruloplasmin (09/30/2021 1:43 PM EST) CERULOPLASMIN 19(L) 20 - 60 mg/dL [facility] Blood 09/30/2021 1:43 PM EST 09/30/2021 1:49 PM EST Sol Coronado ARTISTS' MODEL LAB BLOOD ORDERABLES Elidia l Result [address] [address] * (ABNORMAL) CPK (creatine kinase) (09/30/2021 1:43 PM EST) CREATINE KINASE 270(H) 35 - 232 U/L [facility] Blood 09/30/2021 1:43 PM EST 09/30/2021 1:49 PM EST Sol Coronado ARTISTS' [employer]DEL LAB BLOOD ORDERABLES Elidia l Result Performing Organization Address [facility]/ZIP Co de Phone Number [address] [address] * Immunoglobulin A (09/30/2021 1:43 PM EST) IgA 197 70 - 400 mg/dL [facility] Blood 09/30/2021 1:43 PM EST 09/30/2021 1:49 PM EST Result [facility] Sol Coronado NP LAB BLOOD ORDERABLES Elidia l Result Performing Organization Address [facility] Phone Number [address] [address] * Tissue transglutaminase IgA (09/30/2021 1:43 PM EST) TTG IGA ANTIBODY 2.7 <4.0 (Negative) U/mL [facility] Blood 09/30/2021 1:43 PM EST 09/30/2021 1:49 PM EST Result [facility] Sol Coronado NP LAB BLOOD ORDERABLES Elidia l Result Performing Organization Address [facility] de Phone Number [facility] [address] [place] [address] * Smooth Muscle Antibody (09/30/2021 1:43 PM EST) SMOOTH MUSCLE AB POSITIVE AT 1:80 [facility] Comment: Raymond Alves M.D., Director Clinical Immunology Laboratory [id number] Normal: Negative at 1:20 Blood 09/30/2021 1:43 PM EST 09/30/2021 1:49 PM EST Sol Coronado [employer]DEL LAB BLOOD ORDERABLES Elidia l Result Performing Organization Address City/[facility]/ZIP Co de Phone Number [address] [address] * Anti-Mitochondrial Antibody (AMA) (09/30/2021 1:43 PM EST) MITOCHONDRIAL AB NEGATIVE AT 1:20 [facility] Comment: Raymond Alves M.D., Director Clinical Immunology Laboratory [id number] Normal: Negative at 1:20 Blood 09/30/2021 1:43 PM EST 09/30/2021 1:49 PM EST Sol Coronado NP LAB BLOOD ORDERABLES Elidia l Result Performing Organization Address City/[facility]/ZIP Co de Phone Number [address] [address] * Antinuclear antibody (DEMETRIUS) (09/30/2021 1:43 PM EST) Pathologist [facility] DEMETRIUS SCREEN ON HEP 2 Negative Negative [facility] Blood 09/30/2021 1:43 PM EST 09/30/2021 1:49 PM EST Sol Coronado ARTISTS' MODEL LAB BLOOD ORDERABLES Elidia l Result Performing Organization Address City/[facility]/ZIP Co de Phone Number [address] [address] * Fgqbx-4-csdnhimapxa phenotyping (09/30/2021 1:43 PM EST) Pathologist [facility] ALPHA 1 ANTITRYPSIN 136 100 - 190 mg/dL [facility] Comment: (NOTE) ADDITIONAL INFORMATION Method: Nephelometry A1A PHENOTYPE MM bands [facility] Comment: (NOTE) A single M isoform is detected. In the context of a normal hufku-4-ckvuinwjlxa concentration, this is consistent with an MM phenotype. ADDITIONAL INFORMATION Method: Isoelectric Focusing, This assay identifies the phenotype of the circulating bfqtc-8-sbktxoislla (A1A) protein. If the patient is on replacement therapy or has been recently transfused, the phenotype will detect patient and replacement or transfused plasma A1A protein. This test also cannot detect a null allele which could be responsible for an A1A deficiency. Blood 09/30/2021 1:43 PM EST 09/30/2021 1:49 PM EST Result [facility] Sol Coronado NP LAB BLOOD ORDERABLES Elidia l Result Performing Organization Address City/[facility] Co de Phone Number [facility] [address] [place] [address] * Iron and iron binding capacity (09/30/2021 1:43 PM EST) IRON 80 45 - 160 ug/dL [facility] IRON BINDING CAPACITY 256 228 - 428 ug/dL [facility] TRANSFERRIN SATURAT. 31 20 - 55 % [facility] Blood 09/30/2021 1:43 PM EST 09/30/2021 1:49 PM EST Result [facility] Sol Coronado NP LAB BLOOD ORDERABLES Elidia l Result Performing Organization Address [facility] Co de Phone Number [address] [address] * Hepatitis B surface antibody (09/30/2021 1:43 PM EST) HBV SURFACE ANTIBODY Positive [facility] Comment: Unvaccinated: Negative Vaccinated: Positive Blood 09/30/2021 1:43 PM EST 09/30/2021 1:49 PM EST Result [facility] Sol Coronado NP LAB BLOOD ORDERABLES Elidia l Result Performing Organization Address [facility] Co de Phone Number [address] [address] * Hepatitis B surface antigen (09/30/2021 1:43 PM EST) HBV SURFACE ANTIGEN NON-REACTI VE NON-REACTI VE [facility] Blood 09/30/2021 1:43 PM EST 09/30/2021 1:49 PM EST Sol Coronado ARTISTS' MODEL LAB BLOOD ORDERABLES Elidia l Result [address] [address] * (ABNORMAL) Ferritin (09/30/2021 1:43 PM EST) Pathologist [facility] FERRITIN 461(H) 30 - 400 ug/L [facility] Blood 09/30/2021 1:43 PM EST 09/30/2021 1:49 PM EST Sol Coronado ARTISTS' MODEL LAB BLOOD ORDERABLES Elidia l Result Performing Organization Address City/[facility]/ZIP Co de Phone Number [address] [address] * Lipid panel (09/30/2021 1:43 PM EST) HDL 56 mg/dL [facility] Comment: Interpretation <40 mg/dL: Low HDL cholesterol (major risk factor for CHD) Greater than or equal to 60 mg/dL: High HDL cholesterol ( negative risk factor for CHD) HDL - cholesterol is affected by a number of factors, e.g. smoking, excerise, hormones, sex and age. CHOLESTEROL 199 0 - 240 mg/dL [facility] TRIGLYCERIDES 135 30 - 160 mg/dL [facility] LDL 116 50 - 129 mg/dL [facility] Comment: LDL levels in terms of risk for coronary heart disease: <100 mg/dL: Optimal 100-129 mg/dL: Near or above optimal 130-159 mg/dL: Borderline high 160-189 mg/dL: High >190 mg/dL: Very High CARDIAC RISK RATIO 3.6 3.4 - 5.0 C [facility] Blood 09/30/2021 1:43 PM EST 09/30/2021 1:49 PM EST us Sol Coronado ARTISTS' [employer]DEL LAB BLOOD ORDERABLES Elidia l Result [address] [address] documented in this encounter Visit Diagnoses Diagnosis Abdominal pain, left lower quadrant- Primary Need for hepatitis C screening test Special screening examination for other specified viral diseases documented in this encounter Care Teams Database Marketing Manager Relationship Specialty Start Date End Date Dayanara Agee PA [address] [place] [address] PCP - General Unknown Provider Specialty 08/01/21 documented as of this encounter Additional Source Comments The information contained in this document represents components of the legal health record. It is not the complete legal health record.[facility]
--- OUTSIDE RECORDS SUMMARY | 2025-05-29 10:46 | XMS_ITS | Encounter Summary ---
Author Organization [employer] Address [address] [facility] [place] [address] Care Team Providers Care Poacher Wringer Operator Name Role Phone Makayla Early MD Primary Care Provider +1- [phone] Encounter Details Date Type Department Care Team (Latest Contact Info) Description 05/28/2025 Travel Social History Tobacco Use Types Packs/Day Years Used Date Smoking Tobacco: Never Smokeless Tobacco: Never Alcohol Use Standard Drinks/Week Comments Never 0 [...] AM EDT documented as of this encounter Functional Status * Over the past 2 weeks, how often have you been bothered by any of the following problems? Question Answer Date of Assessment Author Little interest or pleasure in doing things Not at all 05/28/2025 4:35 PM EDT Bora Early MD Feeling down, depressed, or hopeless Not at all 05/28/2025 4:35 PM EDT Bora Early MD Patient Health Questionnaire-2 Score 0 05/28/2025 [...] Perez MD documented as of this encounter Plan of Treatment Upcoming Encounters Date Type Department Care Team (Late st Contact Info) Description 07/30/2025 11:00 AM EST Office Visit [facility] MED[facility]INE [address] [place] [address] Makayla Early MD [address] [place] [address] documented as of this encounter Visit Diagnoses Not on filedocumented in this encounter Additional Health Concerns Assessment Noted Time PHQ-9 Depression Total Score: 1 05/28/20 25 4:35 PM EDT documented as of this encounter Care Teams Poacher Wringer Operator Relationship Specialty Start Date End Date Makayla Early MD [address] [place] [address] PCP - General Family Medicine 05/28/25 documented as of this encounter
--- OUTSIDE RECORDS SUMMARY | 2025-05-29 10:46 | XMS_ITS | Clinical Summary ---
Author Organization [employer] Address [address] [facility] [address] [place] [address] Care Team Providers Care Disc Jockey Name Role Phone Makayla Early MD Primary Care Provider +1- [phone] Allergies Active Allergy Reactions Criticality Noted Date Comments Budesonide-Formoterol Fumarate 10/04/2017 Swelling of throat and tounge Cephalexin 10/04/2017 Rash, hives, nausea/vomiting Clarithromycin 10/04/2017 Rash, hives, nausea/vomiting Honey Bee Venom 11/13/2021 Penicillins 10/04/2017 Rash, hives, nausea/vomiting Sulfa Antibiotics 10/04/2017 Rash, hives, nausea/vomiting Verapamil Unknown 10/04/2017 Medications No known medications Active Problems Problem Noted Date Diagnosed Date 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 Please make note of this in any referrals. Assessment & Plan (05/28/2025 4:36 PM EDT): -Patient needs armature repairer for all visits. Please make note of this in any referrals. -number given for [employer] for assistive equipment for Deaf such as viedo relay, door bel and bed alarm -referral to [facility] for assistance with BALANCER, possible referral to social group such as [facility] Other specified health status 05/28/2025 Overview (05/28/2025): -next comprehensive annual evaluation due after 05/28/26 -eye care facilitated by -dental home is -alec care proxy filed 05/28/26 Assessment & Plan (05/28/2025 4:36 PM EDT): -next comprehensive annual evaluation due after 05/28/26 -eye care facilitated by -dental home is -alec care proxy filed 05/28/26 Obesity (BMI 35.0-39.9 without comorbidity) 01/2025 Assessment & Plan (05/28/2025 4:36 PM EDT): Orders: Hepatic Function Panel; Future Lipid Panel, Standard; Future Basic Metabolic Panel; Future TSH W/Reflex to FT4; Future Anxiety 05/28/2025 Assessment & Plan (05/28/2025 4:36 PM EDT): -referral to behavior health 05/28/25 Orders: TSH W/Reflex to FT4; Future Referral to Behavioral Health; Future Chronic rhinitis 10/04/2017 Overview (05/23/2025): Positive to dust mites on allergy testing. Moderate persistent asthma 10/04/2017 RUDY on CPAP 10/04/2017 Assessment & Plan (05/28/2025 4:36 PM EDT): He has not used his CPAP since 2022 due to his mother's and not knowing how to order supplies. He would like to be treated and is symptomatic. -Referral to sleep medicine placed 05/28/25 Orders: TSH W/Reflex to FT4; Future Referral to Sleep Medicine; Future Vocal cord dysfunction 10/04/2017 Overview (05/23/2025): On laryngoscopy 10/04/17 Encounters Date Type Department Care Team Description 05/28/2025 11:15 AM EDT Office Visit [facility] [address] [place] [address] Makayla Early MD Bilateral deafness (Primary Dx); Obesity (BMI 35.0-39.9 without comorbidity); Anxiety; RUDY on CPAP; Encounter for immunization; Encounter for vaccination; Routine screening for STI (sexually transmitted infection); Learning disability; Dietary counseling; Exercise counseling; Other specified health status 05/28/2025 Travel 05/25/2025 Telephone [facility] [address] [place] [address] Ivett España [place] 05/21/2025 Patient Outreach [facility] [address] [place], [place] [id number] Makayla Early MD Pre-visit Planning ([facility] unable to reach LVM) from Last 3 Months Immunizations Immunization Administration Dates Next Due DTP 02/18/1993, 2,1991,09/13 DTaP 09/26/1996 Hep B, Adolescent or Pediatric 09/06/1996,1995,10/18/1995 Hib (HbO) 10/14/1992, 2,1991,09/13 Influenza injectable quadriv alent preservative free 08/15/2019,06/01/2018,07/06/2017,06/04,05/09/2015,07/11/2014 Influenza, IIV3, injectable 05/26/2012,1 ,06/26/2007,07/20 Influenza, Split (incl. janett fied surface antigen) 07/31/2009,06/28/2008 Influenza, seasonal, injecta ble, preservative free 05/28/2025,07/14/2011 Influenza, seasonal, intrade rmal, preservative free 06/14/2013 MMR 09/26/1996,07/09/1992 OPV, Trivalent 09/26/1996, 3,1991,09/13 Pfizer Covid-19 Vaccine 12+ 05/28/2025 Pneumococcal Conjugate PCV 20 05/28/2025 Pneumococcal Polysaccharide PPSV23 11/29/2012 TD (adult), 2 Lf tetanus tox oid, preservative free, adsorbed 02/16/2003 Tdap 12/01/2018,11/05/2008 Family History Relation Name Status Comments Father Alive Mother Sister Alive Social History Tobacco Use Types Packs/Day Years [...] Orientation Straight 05/09/2025 9: 13 AM EDT Last Filed Vital Signs Vital Sign Reading [...] Mass Index 35.32 05/28/2025 11:00 AM EDT Plan of Treatment Upcoming Encounters Date Type Department Care Team (Late st Contact Info) Description 07/30/2025 11:00 AM EST Office Visit [facility] [address] [place] [address] Makayla Early MD [address] [place] [address] Health Maintenance Due Date Last Done Comments HIV Screening 1991 Lipid Panel 1991 SDOH Screening 1991 Disability Screening 1991 Alcohol/Substance Use Screening 2003 HPV Vaccines (1 - Male 3-dose series) 2006 Hepatitis C Screening 2009 Depression Screening 05/28/2026 05/28/2025, 05/28/20 25 Family Planning (PISQ) 05/28/2026 05/28/2025 Tobacco Screening 05/28/2026 05/28/2025 DTaP/Tdap/Td Vaccines (8 - Td or Tdap) 12/01/2028 12/01/2018, 11/05/2008, 02/16/2003, Additional history exists Zoster Vaccines (1 of 2) 2041 RSV Patients and Patients Aged 60 years or older (1 - 1-dose 75+ series) 2066 HIB Vaccines Completed 10/14/1992, 01/21, 1991, Additional history exists Hepatitis B Vaccines Completed 09/06/1996, 11/15/1995, 10/18/1995 IPV Vaccines Completed 09/26/1996, 01/22, 1991, Additional history exists COVID-19 Vaccine Completed 05/28/2025, , 03/05/2021, Additional history exists Influenza Vaccine Completed 05/28/2025, , 06/23/2022, Additional history exists Pneumococcal Vaccine: Pediatrics (0 to 5 Years) and At-Risk Patients (6 to 49) Years Completed 05/28/2025, 11/29/2012 Hepatitis A Vaccines Aged Out No long er eligible based on patient's age to complete this topic Meningococcal B Vaccine Aged Out No l onger eligible based on patient's age to complete this topic Meningococcal Vaccine Aged Out No anahi luis antonio eligible based on patient's age to complete this topic RSV under 20 months Aged Out No longe r eligible based on patient's age to complete this topic Rotavirus Vaccines Aged Out No longer eligible based on patient's age to complete this topic Insurance [facility] STANDARD MEDICARE Advance Directives Documents on File Type Date Recorded Patient Tattoo And Body Artist Expl anation Advance Directives and Living Will 05/29/2025 Health Care Proxy 05/28/25 Care Teams Disc Jockey Relationship Specialty Start Date End Date Makayla Early MD [address] [place] [address] PCP - General Family Medicine 05/28/25
--- OUTSIDE RECORDS SUMMARY | 2025-05-29 10:46 | XMS_ITS | Encounter Summary ---
Author Organization [facility] Address [address] [facility] [address] [place] [address] Phone Care Team Providers Care Child Day Care Teacher Name Role Phone Herberth Conway PA-C Primary Care Provider +1 -[phone] Irasema Herrera Primary Care Provider Dayanara Agee Primary Care Provider +1- [phone] Encounter Details Date Type Department Care Team (Late st Contact Info) Description 09/28/2018 Procedure Pass [address] [place] [address] Social History Tobacco Use Types Packs/Day Years [...] on file documented as of this encounter Last Filed Vital Signs Vital Sign Reading Time Taken Comments Blood Pressure - - Pulse - - Temperature - - Respiratory Rate - - Oxygen Saturation - - Inhaled Oxygen Concentration - - Weight 122.5 kg (270 lb) 09/30/2018 2:22 PM EST Height 175.3 cm (5' 9 ) 09/30/2018 2:22 PM EST Body Mass Index 39.87 09/30/2018 2:22 PM EST documented in this encounter Plan of Treatment Not on file documented as of this encounter Visit Diagnoses Not on filedocumented in this encounter Care Teams Child Day Care Teacher Relationship Specialty Start Date End Date Herberth Conway PA-C [address] [place] [address] [address] [place] [address] PCP - General 07/20/17 10/12/18 Irasema Herrera PA [address] [place] [address] [address] [place] [address] PCP - General Unknown Provider Specialty 10/13/18 Dayanara Agee PA [address] [place] [address] PCP - General Unknown Provider Specialty 08/01/21 documented as of this encounter Additional Source Comments The information contained in this document represents components of the legal health record. It is not the complete legal health record.[facility]
--- OUTSIDE RECORDS SUMMARY | 2025-05-29 10:46 | XMS_ITS | Encounter Summary ---
Author Organization [facility] Address [address] [address] Phone Care Team Providers Care Manager Technical Services Name Role Phone Dayanara Agee Primary Care Provider +1- [phone] Encounter Details Date Type Department Care Team (Late st Contact Info) Description 11/13/2021 Procedure Pass [facility] Admitting Dept Virtual Department [address] [place] [address] Social History Tobacco Use Types Packs/Day Years [...] on filedocumented in this encounter Care Teams Manager Technical Services Relationship Specialty Start Date End Date Dayanara Agee PA [address] [place] [address] PCP - General Unknown Provider Specialty 08/01/21 documented as of this encounter Additional Source Comments The information contained in this document represents components of the legal health record. It is not the complete legal health record.[facility]
--- OUTSIDE RECORDS SUMMARY | 2025-05-29 10:46 | XMS_ITS | Encounter Summary ---
Author Organization [facility] Address [address] [place] [phone] Phone Care Team Providers Care Project Scientist Name Role Phone Dayanara Agee Primary Care Provider +1- [phone] Encounter Details Date Type Department Care Team ([facility] st Contact Info) Description 12/03/2021 Procedure Pass [facility], [address] [place] [address] Social History Tobacco Use Types Packs/Day Years [...] on filedocumented in this encounter Care Teams Project Scientist Relationship Specialty Start Date End Date Dayanara Agee PA [address] [place] [address] PCP - General Unknown Provider Specialty 08/01/21 documented as of this encounter Additional Source Comments The information contained in this document represents components of the legal health record. It is not the complete legal health record.[facility]
--- OUTSIDE RECORDS SUMMARY | 2025-05-29 10:46 | XMS_ITS | Encounter Summary ---
Author Organization [employer] Address [address] [facility] [address] [place] [address] Care Team Providers Care Refinery Operator Light Ends Recovery Name Role Phone Unavailable Primary Care Provider Unavailabl e Encounter Details Date Type Department Care Team (Late st Contact Info) Description 05/25/[address] [facility] MED[facility]INE [address] [place] [address] Ivett España [place] Social History Tobacco Use Types Packs/Day Years Used Date Smoking Tobacco: Never Assessed Sex and Gender Information Value Date Recorded Sex Assigned at Male 05/09/2025 9:13 AM EDT Legal Sex Male 9:00 AM EDT Gender Identity Male 05/09/2025 9:13 AM EDT Sexual Orientation Straight 05/09/2025 9: 13 AM EDT documented as of this encounter Miscellaneous Notes * Telephone Encounter - Ivett España MA - 05/25/2025 1:13 PM EDT ..Chart Prep Labs: not applicable Images: not applicable Vaccines due: Tdap Due, Flu Due, and HPV Referrals: Not Applicable Screenings: Not Applicable Overdue care gaps: Sbirt, SDOH, PHQ9, GAD7, Disability , and Oral Health documented in this encounter Plan of Treatment Upcoming Encounters Date Type Department Care Team (Late st Contact Info) Description 07/30/2025 11:00 AM EST Office Visit [facility] [address] [place] [address] Makayla Early MD [address] [place] [address] documented as of this encounter Visit Diagnoses Not on filedocumented in this encounter
--- OUTSIDE RECORDS SUMMARY | 2025-05-29 10:47 | XMS_ITS | Encounter Summary ---
Author Organization [facility] Address [address] [place] [phone] Phone Care Team Providers Care Driver Medic Name Role Phone Dayanara Agee Primary Care Provider [phone] Encounter Details Date Type Department Care Team (Latest Contact Info) Description 12/12/2021 Transcribe Orders Virtual Department [address] [place] [address] Sol Coronado NP [address] [place] [id number] Elevated LFTs (Primary Dx); Fatty liver Social History Tobacco Use Types Packs/Day Years [...] documented as of this encounter Results * US LIVER WITH ELASTOGRAPHY (01/13/2022 10:28 AM EDT) Anatomical Region Laterality Modality Abdomen Ultrasound 01/13/2022 6:01 PM EDT Impressions 01/13/2022 7:07 PM EDT Diffusely echogenic parenchyma, consistent with a chronic parenchymal process, most commonly steatosis. The median shear wave speed is 1.33 m/s. This is less than 1.7 m/s, which in the absence of other known clinical signs, rules out compensated advanced chronic liver disease. RECOMMENDATION: If there are known clinical signs of compensated advanced chronic liver disease, further testing for confirmation could be considered. [employer] [facility]: In the setting of elevated liver function tests, nonfasting, vascular congestion, etc., the stage of liver fibrosis may be overestimated. In some patients with NAFLD, the cut-off values for compensated advanced chronic liver disease may be lower. In causes other than viral hepatitis and NAFLD, the cut-off values are not well established. Narrative 01/13/2022 7:07 PM EDT TECHNIQUE: Focused ultrasound evaluation of the liver. Volumetric sweeps were obtained and reviewed. COMPARISON: [facility] FINDINGS: LIVER: Diffusely echogenic and heterogeneous. No focal suspicious liver lesion. ELASTOGRAPHY: Liver stiffness measurements were obtained in the right hepatic lobe [facility] a [facility]. Point shear wave elastography technique was utilized following SRU guidelines. A total of 10 valid measurements were obtained. Median shear wave speed is: 1.33 m/s. IQR to median ratio: 3.0%. BILIARY: Gallbladder: Absent Common bile duct measures 4 mm. Procedure Note Jay Maharaj MD - 01/13/2022 TECHNIQUE: Focused ultrasound evaluation of the liver. Volumetric sweeps wereobtained and reviewed. COMPARISON: [facility] FINDINGS: LIVER: Diffusely echogenic and heterogeneous. No focal suspicious liverlesion. ELASTOGRAPHY: Liver stiffness measurements were obtained in the righthepatic lobe on a [employer] ultrasound machine. Point shear waveelastography technique was utilized following SRU guidelines. A total of10 valid measurements were obtained. Median shear wave speed is: 1.33m/s. IQR to median ratio: 3.0%. BILIARY: Gallbladder: Absent Common bile duct measures 4 mm. IMPRESSION: Diffusely echogenic parenchyma, consistent with a chronic parenchymalprocess, most commonly steatosis. The median shear wave speed is 1.33 m/s. This is less than 1.7 m/s, whichin the absence of other known clinical signs, rules out compensatedadvanced chronic liver disease. RECOMMENDATION: If there are known clinical signs of compensated advanced chronic liverdisease, further testing for confirmation could be considered. [employer] [facility] CONSENSUS: In the setting of elevated liver function tests, nonfasting, vascularcongestion, etc., the stage of liver fibrosis may be overestimated. Insome patients with NAFLD, the cut-off values for compensated advancedchronic liver disease may be lower. In causes other than viral hepatitisand NAFLD, the cut-off values are not well established. us Sol Coronado LIFE [facility] IM[facility] US ABDOMEN Final Res ult documented in this encounter Visit Diagnoses Diagnosis Elevated LFTs- Primary Other abnormal blood chemistry Fatty liver Other chronic nonalcoholic liver disease Elevated LFTs Other abnormal blood chemistry Fatty liver Other chronic nonalcoholic liver disease documented in this encounter Care Teams Driver Medic Relationship Specialty Start Date End Date Dayanara Agee PA [address] [place] [id number] PCP - General Unknown Provider Specialty 08/01/21 documented as of this encounter Additional Source Comments The information contained in this document represents components of the legal health record. It is not the complete legal health record.[facility]
[2025-05-29 12:07] LABS: Alanine Aminotransferase 37 U/L (0-40); Albumin Level 4.9 g/dL (3.5-5.0); Alkaline Phosphatase 83 U/L (39-117); Anion Gap 12 (12-20); Aspartate Amino Transferase 20 U/L (5-37); Blood Urea Nitrogen 17 mg/dL (9-16); Calcium 9.3 mg/dL (8.4-10.2); Carbon Dioxide 25 mmol/L (22-29); Chloride 105 mmol/L (96-108); Cholesterol 150 mg/dL (<200); Estimated Glomerular Filt Rate > 60; HDL Cholesterol 42 mg/dL (>40); Potassium 3.4 mmol/L (3.3-5.1); Sodium 139 mmol/L (135-145); Total Protein 7.4 g/dL (6.5-8.0); Triglycerides 67 mg/dL (<150)
[2025-05-29 12:36] LABS: HIV Num 1 0.05 S/CO (0.00-0.99); ~HepC Num1 0.18 S/CO (0.00-0.79); ~Hepatitis C Antibody Nonreactive (Nonreactive)
== END 2025-05-29 09:28 | disposition home or self-care (01) ==
LOC: HO.HHCL 09:27
PROVIDERS: PCP Family Medicine; Visit Provider Family Medicine
DX: Z11.4 Encounter for screening for human immunodeficiency virus [HIV] (principal); Z11.3 Encounter for screening for infections with a predominantly sexual mode of transmission; E66.9 Obesity, unspecified; G47.33 Obstructive sleep apnea (adult) (pediatric); F41.9 Anxiety disorder, unspecified
CPT/HCPCS: 36415; 80048; 80061; 80076; 84443; 86803; 87389